=== PATIENT | male | born 1975 | race Caucasian/White ===

== ENCOUNTER → 2020-10-18 | Outpatient (CLI) | payer OTHER ==
--- NOTE | 2020-10-18 18:19 | Diagnostic Imaging Report ---
PROCEDURE: CT chest without contrast. TECHNIQUE: Multiple contiguous axial images were obtained through the chest without the use of intravenous contrast. Auto Exposure Controls were utilized during the CT exam to meet ALARA standards for radiation dose reduction. INDICATION: History of pulmonary nodules. COMPARISON: None FINDINGS: Included portions of the lung bases show background moderate emphysematous disease with prominent subpleural bleb formation, particularly in the right apex. There is no focal consolidation, large effusion, or pneumothorax. Tiny subpleural micronodule is noted within the subpleural margins of the posterior left lower lobe (image 114, series 3). It measures 2 mm in diameter. No other suspicious pulmonary nodules or masses are seen. Cardiomediastinal structures show normal heart size. There is no large pericardial effusion. There is bulky scattered calcified coronary atherosclerosis. No pathologically enlarged or morphologically abnormal adenopathy is seen within the mediastinum, carey, nor axilla. Osseous structures show no acute abnormalities. No lytic or blastic bony lesions are seen. Included portions of the upper abdomen are unremarkable. IMPRESSION: 1. Tiny micronodule within the left lower lobe. If patient is in a high-risk category, such as history of smoking, one-year followup could be performed to ensure stability. 2. Background scattered bulky calcified coronary atherosclerosis. 3. Background moderate emphysematous disease. Dictated by: Dictated on workstation # [id number]
== END ==
LOC: RAD 16:39
PROVIDERS: ATTEND Nurse Practitioner Family
DX: Z23 Encounter for immunization (principal); Z02.89 Encounter for other administrative examinations; Z76.0 Encounter for issue of repeat prescription; L84 Corns and callosities; J43.9 Emphysema, unspecified; I25.10 Atherosclerotic heart disease of native coronary artery without angina pectoris; R91.1 Solitary pulmonary nodule; Z87.891 Personal history of nicotine dependence
CPT/HCPCS: 71250

== ENCOUNTER → 2020-10-25 | Outpatient (CLI) | payer OTHER ==
--- NOTE | 2020-10-25 10:19 | Diagnostic Imaging Report ---
PROCEDURE: US Hepatic (Liver). TECHNIQUE: Multiple real-time grayscale images were obtained over the right upper quadrant in various projections. INDICATION: Inflammatory liver disease. The liver is normal in size at 14 cm. No discrete liver mass is identified. Portal vein is patent and shows normal direction of flow. Gallbladder is without stones or sludge. No wall thickening or biliary ductal dilatation is seen. Pancreas is unremarkable. Aorta is nonaneurysmal. IVC is patent. Right kidney is without calculi or hydronephrosis. There is no ascites. IMPRESSION: Unremarkable right upper quadrant ultrasound. Dictated by: Dictated on workstation # [id number]
== END ==
LOC: RAD 07:30
PROVIDERS: ATTEND Nurse Practitioner Family
DX: K75.9 Inflammatory liver disease, unspecified (principal)
CPT/HCPCS: 76705

== ENCOUNTER 2020-12-11 06:45 | Outpatient (CLI) | payer OTHER ==
[~2020-12-11] VITALS: Ht 175.3 cm; Wt 50.4 kg
[2020-12-11] MEDS ORDERED: RT-ALBUINH IH (10:35)
[2020-12-11] MEDS ORDERED: BUDE10.7 IH (10:35)
[2020-12-12] MEDS ORDERED: NAPR-1088 PO (09:35)
== END 2020-12-12 10:05 | disposition home or self-care (01) ==
LOC: PREOP 06:45
PROVIDERS: ATTEND Surgery
DX: Z01.818 Encounter for other preprocedural examination (principal)

== ENCOUNTER 2020-12-18 08:53 | Day surgery (SDC) | payer OTHER ==
[~2020-12-18] VITALS: Ht 175.3 cm; Wt 50.4 kg
[2020-12-18] VITALS (8 sets, daily range): BP systolic 106–144; BP diastolic 62–96
[~2020-12-18 08:53] MED LIST: BUDE10.7 IH; NAPR-1088 PO; RT-ALBUINH IH
[2020-12-18] MEDS ORDERED: LACTATED RINGERS 1,000 ML IV STA (08:57)
[2020-12-18] MEDS ORDERED: LACTATED RINGERS 1,000 ML IV ONE (08:57)
[2020-12-18] MEDS ORDERED: PROPOFOL INJECTION 50 ML IV ONE ×2 (10:46→11:19)
--- NOTE | 2020-12-18 11:41 | Progress Note-Post Operative ---
Post-Operative Progess Note Surgeon (s)/Solar Manufacturer'S Representative (s) Surgeon GALEN ORTEZ DO Solar Manufacturer'S Representative: na Pre-Operative Diagnosis family history colon cancer Post-Operative Diagnosis prostated nodule right side, colon polyp Procedure & Operative Findings Date of Procedure 12/18/20 Procedure Performed/Findings colonoscopy c snare polypectomy Anesthesia Type per border measurer and cutter Estimated Blood Loss Estimated blood loss (mL): none Specimens/Packing Specimens Removed sigmoid polyp GALEN ORTEZ DO Dec 18, 2020 11:41
--- NOTE | 2020-12-18 11:43 | Discharge Inst-Simple/Standard ---
Discharge Inst-Standard Patient Instructions/Follow Up Plan of Care/Instructions/FU: 2 weeks Jhon Activity as Tolerated: Yes Discharge Diet: Regular Diet GALEN ORTEZ DO Dec 18, 2020 11:42
--- NOTE | 2020-12-18 12:22 | Anesthesia-General Post-Op ---
MAC Patient Condition Mental Status/LOC: Same as Preop Cardiovascular: Satisfactory Nausea/Vomiting: Absent Respiratory: Satisfactory Pain: Controlled Complications: Absent Post Op Complications Complications None Follow Up Care/Instructions Patient Instructions None needed. Anesthesiology Discharge Order Discharge Order Patient is doing well, no complaints, stable vital signs, no apparent adverse anesthesia problems. No complications reported per nursing. SABINE BRAY CRNA Dec 18, 2020 12:22
--- NOTE | 2020-12-18 16:37 | OPERATIVE REPORT ---
DATE OF SERVICE: 12/18/2020 PREOPERATIVE DIAGNOSIS: Family history of colon cancer. POSTOPERATIVE DIAGNOSES: Prostate nodule, right side colon polyp. PROCEDURES PERFORMED: Colonoscopy with snare polypectomy. SURGEON: Galen Ferreira DO. ANESTHESIA: Per CUST[employer]S IMPORT SPECIALIST. ESTIMATED BLOOD LOSS: None. COMPLICATIONS: None. INDICATIONS FOR PROCEDURE: The patient is a 45-year-old male with family history of colon cancer. He understands risks and benefits of the procedure and wishes to proceed. Consent was signed in the chart. DESCRIPTION OF PROCEDURE: The patient was taken to the endoscopy suite and placed in a left lateral recumbent position. Timeout was performed. Digital rectal exam was performed. There were no palpable polyps, masses or ulcerations. Right prostate nodule possibly present on exam, slight firmness. Scope was then inserted in the rectum, advanced all the way to cecum with minimal difficulty. Prep was adequate with irrigation and suction. Scope was then slowly retracted back. There were no polyps, masses, ulceration of the cecum, ascending, transverse and descending colon. In the sigmoid colon, a polyp was present, which snare polypectomy was performed. This was suctioned for specimen. Scope was then continued slowly retracted back. No polyps, masses or ulcerations within the remainder of the sigmoid colon. Once in the rectum, scope was retroflexed noting no other pathology. Scope was returned to its normal position, slowly withdrawn until completely removed. The patient tolerated the procedure well without any complications and taken to the recovery room in stable condition. RECOMMENDATIONS: The patient will need repeat colonoscopy in likely 3 to 5 years. Any issues before that be seen at that time. We would get an ultrasound of the prostate for further evaluation of the nodule. Job ID: [id number] DocumentID: [id number] Dictated Date: 12/18/2020 11:45:54 Scraper Tender Date: 12/18/2020 16:37:11 Dictated By: GALEN FERREIRA DO
== END 2020-12-18 12:35 | disposition home or self-care (01) ==
LOC: ENDO 08:53
PROVIDERS: ATTEND Surgery
DX: Z12.11 Encounter for screening for malignant neoplasm of colon (principal); D12.5 Benign neoplasm of sigmoid colon; J44.9 Chronic obstructive pulmonary disease, unspecified; N40.2 Nodular prostate without lower urinary tract symptoms; Z98.890 Other specified postprocedural states; Z79.899 Other long term (current) drug therapy; Z80.0 Family history of malignant neoplasm of digestive organs; Z87.891 Personal history of nicotine dependence